=== PATIENT | male | born 1940 | race Caucasian/White ===

== ENCOUNTER 2020-01-17 19:11 | Emergency (ER) | payer OTHER, MEDICARE ==
[~2020-01-17] VITALS: Ht 170.2 cm; Wt 68.0 kg
[~2020-01-17 19:11] MED LIST: ALBIPROI INH; AZEL.05OP OD; CARV3.125 PO; CLOT1TC TOP; CYAN1000 PO; GABA300 PO; HYDACE5 PO; HYPROMELLOSE OT; INDO25 PO; KETO120T TP; LEVFLO500 PO; MIRT15 PO; NITR.6SL SL; PRAV20 PO; PROCODE120 PO; RALT400 PO; [UNRECOGNIZED DRUG - REMARK]
[2020-01-17] MEDS ORDERED: ATOR20 PO (19:40)
[2020-01-17] MEDS ORDERED: GENTEAL TEARS 015 ML BOTHEYES (19:41)
[2020-01-17] MEDS ORDERED: OMEP20ER PO (19:42)
[2020-01-17] MEDS ORDERED: ASPI81CH PO (19:43)
[2020-01-17] MEDS ORDERED: TRIUMEQ TABLET1 EACH PO (19:45)
[2020-01-17 20:10] LABS: BASOPHILS ABSOLUTE AUTO 0.07 K/mm3 (0.00-0.23); BASOPHILS PERCENT AUTO 1 % (0-2); EOSINOPHILS PERCENT AUTO 3 % (0-6); Hematocrit 40.3 % (37.0-53.0); IMMATURE GRAN ABSOLUTE AUTO 0.01 K/mm3 (0.00-0.10); IMMATURE GRAN PERCENT AUTO 0 % (0-1); LYMPHOCYTES ABSOLUTE AUTO 2.82 K/mm3 (0.84-5.20); LYMPHOCYTES PERCENT AUTO 41 % (21-46); MONOCYTES ABSOLUTE AUTO 0.52 K/mm3 (0.16-1.47); MONOCYTES PERCENT AUTO 8 % (4-13); Mean Corpuscular HGB 33.4 pg (26.0-34.0); Mean Corpuscular HGB Conc 34.7 g/dL (31.5-36.5); Mean Corpuscular Volume 96 fL (80-100); Mean Platelet Volume 9.7 fL (9.1-12.4); NEUTROPHILS ABSOLUTE AUTO 3.32 K/mm3 (1.96-9.15); NEUTROPHILS PERCENT AUTO 48 % (41-73); Platelet Count 236 K/mm3 (150-400); RDW Coefficient Variation 13.1 % (11.7-14.2); RDW Standard Deviation 46.4 fL (35.1-46.3); Red Blood Cell Count 4.19 M/mm3 (4.30-5.90); White Blood Cell Count 6.94 K/mm3 (4.00-11.30)
[2020-01-17 20:16] LABS: Albumin, Blood 3.7 g/dL (3.4-5.0); Albumin/Globulin Ratio 0.9 (0.8-1.8); Bilirubin, Total 0.4 mg/dL (0.1-1.0); Bun/Creatinine Ratio 10.1 (12.0-20.0); Calcium, Blood 8.8 mg/dL (8.5-10.1); Creatinine, Blood 1.59 mg/dL (0.60-1.20); Globulin, Blood 3.9 g/dL (2.2-4.0); Total Protein, Blood 7.6 g/dL (6.4-8.2)
[2020-01-17 20:58] LABS: Source, Urine Clean Catch
[2020-01-17 21:00] LABS: Appearance, Urine Clear (Clear); Bilirubin, Urine Neg (Neg); Blood, Urine 1+ (Neg); Color, Urine Yellow (P-Yellow); Glucose Qualitative, Urine Neg (Neg); Ketones, Urine Neg (Neg); Leukocyte Esterase, Urine Neg (Neg); Nitrite, Urine Neg (Neg); Protein, Urine 2+ (Neg); Specific Gravity, Urine 1.025 (1.003-1.022); Urobilinogen, Urine NORM (Normal)
[2020-01-17 21:06] LABS: Bacteria Few /hpf; Calcium Oxalate Crystals Mod /hpf; Red Blood Cells, Urine 0-2 /hpf (0-2); Squamous Epithelial Cells Few /hpf (Few); White Blood Cells, Urine 0-2 /hpf (0-5)
[2020-01-17] MEDS ORDERED: HYDR25SUP PR (21:34)
== END 2020-01-17 21:40 | disposition home or self-care (01) ==
LOC: ER 19:11
PROVIDERS: Emergency Medicine
DX: K64.9 Unspecified hemorrhoids (principal); R19.7 Diarrhea, unspecified; I13.0 Hypertensive heart and chronic kidney disease with heart failure and stage 1 through stage 4 chronic kidney disease, or unspecified chronic kidney disease; N18.9 Chronic kidney disease, unspecified; I50.9 Heart failure, unspecified; J44.9 Chronic obstructive pulmonary disease, unspecified; F20.9 Schizophrenia, unspecified; B20 Human immunodeficiency virus [HIV] disease; G47.30 Sleep apnea, unspecified
CPT/HCPCS: 74176; 80053; 81001; 83690; 85025; 93005; 93010; 99285-25

== ENCOUNTER 2021-02-11 05:46 | Day surgery (SDC) | payer OTHER ==
[~2021-02-11] VITALS: Ht 170.2 cm; Wt 79.0 kg
[~2021-02-11 05:46] MED LIST changes: -ALBIPROI INH; +ASPI81CH PO; +ATOR20 PO; +COMBIVENT RESPIM4 G1 INH; +GENTEAL TEARS 015 ML BOTHEYES; +HYDR25SUP PR; -KETO120T TP; +KETO15TC TOP; +OMEP20ER PO; +TRIUMEQ TABLET1 EACH PO
[2021-02-11] MEDS ORDERED: VITAMIN D31000 UNI1 PO (06:34)
[2021-02-11] MEDS ORDERED: ZYRTEC10 M1 PO (06:37)
[2021-02-11] MEDS ORDERED: ABACAVIR-LAMIV1 EAC3 PO (06:38)
[2021-02-11] MEDS ORDERED: Isosorbide Mono30 MG PO (06:42)
--- NOTE | 2021-02-11 09:14 | NUR ---
ZOFRAN 4 MG IV GIVVEN FOR NAUSEA AND VOMITING. SMALL HEMATOMA RIGHT GROIN. MANUAL PRESSUREHELD BY Ronnell VALLEJO RN X 10 MINUTES. SIGHT NOW SOFT.
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
--- NOTE | 2021-02-11 12:36 | NUR ---
PT GETTING DRESSED PER SELF, BOTH WRIST AND GROIN SITES STABLE
--- NOTE | 2021-02-11 12:49 | NUR ---
TR BAND REMOVED FROM R RADIAL SITE, NO BLEEDING NOTED. AREA CLEANED AND CLOTH DOT APPLIED. SALINE LOCK REMOVED WITH CATHETER INTACT. BOTH GROIN AND RADIAL SITE STABLE. DISCHARGE GONE OVER WITH PT, PT VERBALIZES UNDERSTANDING. PT TO PRIVATE VEHICLE PER W/C
== END 2021-02-11 13:00 | disposition home or self-care (01) ==
LOC: MHTC 05:46
DX: I25.118 Atherosclerotic heart disease of native coronary artery with other forms of angina pectoris (principal); G47.33 Obstructive sleep apnea (adult) (pediatric); I13.0 Hypertensive heart and chronic kidney disease with heart failure and stage 1 through stage 4 chronic kidney disease, or unspecified chronic kidney disease; I50.9 Heart failure, unspecified; N18.9 Chronic kidney disease, unspecified; E78.5 Hyperlipidemia, unspecified; Z79.82 Long term (current) use of aspirin; Z87.891 Personal history of nicotine dependence; Z88.0 Allergy status to penicillin
CPT/HCPCS: 85347; 93458; 93571; 93572; 99152; 99153; C1760; C1769; C1887; C1894; J1644; J2250; J2405; J3010; J7030; J7050; Q9967

== ENCOUNTER 2023-09-20 18:51 | Emergency (ER) | payer OTHER ==
[~2023-09-20] VITALS: Ht 167.6 cm; Wt 77.1 kg
[~2023-09-20 18:51] MED LIST changes: +ABACAVIR-LAMIV1 EAC3 PO; +Isosorbide Mono30 MG PO; +VITAMIN D31000 UNI1 PO; +ZYRTEC10 M1 PO
[2023-09-20 19:47] LABS: BASOPHILS ABSOLUTE AUTO 0.08 K/mm3 (0.00-0.23); BASOPHILS PERCENT AUTO 1 % (0-2); EOSINOPHILS ABSOLUTE AUTO 0.35 K/mm3 (0.00-0.68); EOSINOPHILS PERCENT AUTO 5 % (0-6); Hematocrit 39.7 % (37.0-53.0); Hemoglobin 13.9 g/dL (13.5-17.5); IMMATURE GRAN ABSOLUTE AUTO 0.02 K/mm3 (0.00-0.10); IMMATURE GRAN PERCENT AUTO 0 % (0-1); LYMPHOCYTES ABSOLUTE AUTO 2.57 K/mm3 (0.84-5.20); LYMPHOCYTES PERCENT AUTO 35 % (21-46); MONOCYTES ABSOLUTE AUTO 0.46 K/mm3 (0.16-1.47); MONOCYTES PERCENT AUTO 6 % (4-13); Mean Corpuscular Volume 97 fL (80-100); Mean Platelet Volume 9.6 fL (9.1-12.4); NEUTROPHILS ABSOLUTE AUTO 3.87 K/mm3 (1.96-9.15); NEUTROPHILS PERCENT AUTO 53 % (41-73); Platelet Count 214 K/mm3 (150-400); RDW Coefficient Variation 13.4 % (11.7-14.2); RDW Standard Deviation 47.8 fL (35.1-46.3); Red Blood Cell Count 4.09 M/mm3 (4.30-5.90); White Blood Cell Count 7.35 K/mm3 (4.00-11.30)
[2023-09-20 20:14] LABS: Albumin, Blood 3.5 g/dL (3.4-5.0); Albumin/Globulin Ratio 0.9 (0.8-1.8); Bilirubin, Total 0.4 mg/dL (0.1-1.0); Bun/Creatinine Ratio 11.2 (12.0-20.0); Calcium, Blood 9.4 mg/dL (8.5-10.1); Creatinine, Blood 1.34 mg/dL (0.60-1.20); Total Protein, Blood 7.5 g/dL (6.4-8.2)
[2023-09-20 20:39] LABS: Source, Urine Voided
[2023-09-20 20:58] LABS: Bilirubin, Urine Neg (Neg); Blood, Urine 4+ (Neg); Glucose Qualitative, Urine Neg (Neg); Ketones, Urine Neg (Neg); Leukocyte Esterase, Urine 2+ (Neg); Nitrite, Urine Neg (Neg); Protein, Urine 2+ (Neg); Specific Gravity, Urine 1.025 (1.003-1.022); Urobilinogen, Urine NORM (Normal)
[2023-09-20 21:00] LABS: Appearance, Urine Hazy (Clear); Color, Urine Yellow (P-Yellow)
[2023-09-20 21:08] LABS: Amorphous Light (0-Heavy); Bacteria Mod /hpf; Mucus Light (0-Heavy); Red Blood Cells, Urine 0-2 /hpf (0-2); Squamous Epithelial Cells Few /hpf (Few); White Blood Cells, Urine TNTC /hpf (0-5)
[2023-09-21 01:00] VITALS: BP 162/86
[2023-09-21] MEDS ORDERED: HYDR1TAB94 PO (01:06)
== END 2023-09-21 01:20 | disposition home or self-care (01) ==
LOC: ER 18:51
PROVIDERS: Emergency Medicine
DX: R10.32 Left lower quadrant pain (principal); R82.81 Pyuria; Z21 Asymptomatic human immunodeficiency virus [HIV] infection status; I13.0 Hypertensive heart and chronic kidney disease with heart failure and stage 1 through stage 4 chronic kidney disease, or unspecified chronic kidney disease; I50.9 Heart failure, unspecified; N18.9 Chronic kidney disease, unspecified; J44.9 Chronic obstructive pulmonary disease, unspecified; G47.33 Obstructive sleep apnea (adult) (pediatric); F20.9 Schizophrenia, unspecified; Z79.82 Long term (current) use of aspirin; Z79.899 Other long term (current) drug therapy; Z88.0 Allergy status to penicillin; Z88.2 Allergy status to sulfonamides; Z88.8 Allergy status to other drugs, medicaments and biological substances; Z91.041 Radiographic dye allergy status
CPT/HCPCS: 74176; 80053; 81001; 85025; 96360; 99284-25; A9270; J7030

== ENCOUNTER 2023-12-12 16:58 | Emergency (ER) | payer OTHER ==
[~2023-12-12] VITALS: Ht 170.2 cm; Wt 77.1 kg
[~2023-12-12 16:58] MED LIST changes: +HYDR1TAB94 PO
[2023-12-12 17:45] LABS: BASOPHILS ABSOLUTE AUTO 0.07 K/mm3 (0.00-0.23); BASOPHILS PERCENT AUTO 1 % (0-2); EOSINOPHILS ABSOLUTE AUTO 0.12 K/mm3 (0.00-0.68); EOSINOPHILS PERCENT AUTO 2 % (0-6); Hematocrit 40.9 % (37.0-53.0); Hemoglobin 14.7 g/dL (13.5-17.5); IMMATURE GRAN ABSOLUTE AUTO 0.02 K/mm3 (0.00-0.10); IMMATURE GRAN PERCENT AUTO 0 % (0-1); LYMPHOCYTES ABSOLUTE AUTO 2.55 K/mm3 (0.84-5.20); LYMPHOCYTES PERCENT AUTO 40 % (21-46); MONOCYTES ABSOLUTE AUTO 0.39 K/mm3 (0.16-1.47); MONOCYTES PERCENT AUTO 6 % (4-13); Mean Corpuscular HGB 34.3 pg (26.0-34.0); Mean Corpuscular HGB Conc 35.9 g/dL (31.5-36.5); Mean Corpuscular Volume 96 fL (80-100); Mean Platelet Volume 9.4 fL (9.1-12.4); NEUTROPHILS ABSOLUTE AUTO 3.29 K/mm3 (1.96-9.15); NEUTROPHILS PERCENT AUTO 51 % (41-73); Platelet Count 217 K/mm3 (150-400); RDW Standard Deviation 45.1 fL (35.1-46.3); Red Blood Cell Count 4.28 M/mm3 (4.30-5.90); White Blood Cell Count 6.44 K/mm3 (4.00-11.30)
[2023-12-12 18:09] LABS: Albumin, Blood 3.9 g/dL (3.4-5.0); Albumin/Globulin Ratio 0.9 (0.8-1.8); Bilirubin, Total 0.8 mg/dL (0.1-1.0); Bun/Creatinine Ratio 10.2 (12.0-20.0); Creatinine, Blood 1.37 mg/dL (0.60-1.20); Globulin, Blood 4.3 g/dL (2.2-4.0); Potassium, Blood 3.4 mmol/L (3.5-5.5); Total Protein, Blood 8.2 g/dL (6.4-8.2)
[2023-12-12] MEDS ORDERED: Potassium Chloride 20 MEQ TabCR PO ONE (19:20)
[2023-12-12 20:45] VITALS: BP 184/94
== END 2023-12-12 20:52 | disposition home or self-care (01) ==
LOC: ER 16:58
PROVIDERS: Student in an Organized Health Care Education/Training Program
DX: R55 Syncope and collapse (principal); R42 Dizziness and giddiness; E87.6 Hypokalemia; I13.0 Hypertensive heart and chronic kidney disease with heart failure and stage 1 through stage 4 chronic kidney disease, or unspecified chronic kidney disease; I50.9 Heart failure, unspecified; N18.9 Chronic kidney disease, unspecified; I25.10 Atherosclerotic heart disease of native coronary artery without angina pectoris; J44.9 Chronic obstructive pulmonary disease, unspecified; F20.9 Schizophrenia, unspecified; G47.33 Obstructive sleep apnea (adult) (pediatric); Z21 Asymptomatic human immunodeficiency virus [HIV] infection status; Z91.041 Radiographic dye allergy status; Z88.0 Allergy status to penicillin; Z88.8 Allergy status to other drugs, medicaments and biological substances; Z88.2 Allergy status to sulfonamides; Z88.1 Allergy status to other antibiotic agents; Z79.899 Other long term (current) drug therapy; Z79.82 Long term (current) use of aspirin
CPT/HCPCS: 70450; 71046; 80053; 82947; 83735; 83880; 84484; 85025; 93005; 93010; 99285-25; A9270

== ENCOUNTER 2024-02-23 17:43 | Inpatient (IN) | payer OTHER ==
[~2024-02-23] VITALS: Ht 170.2 cm; Wt 79.4 kg
[~2024-02-23 17:43] MED LIST changes: +Voltaren100 GM TOP
[2024-02-23] MEDS ORDERED: FentaNYL Citrate 50 MCG/ML 2 ML Injection ONE (17:54)
[2024-02-23] MEDS ORDERED: Diphth,Pertuss(Acell),Tet Vac 0.5 ML VIAL IM ONE (18:05)
[2024-02-23] MEDS ORDERED: FentaNYL Citrate 50 MCG/ML 2 ML Injection IV PRN ×2 (18:05→21:05)
[2024-02-23 18:15] LABS: BASOPHILS ABSOLUTE AUTO 0.07 K/mm3 (0.00-0.23); BASOPHILS PERCENT AUTO 1 % (0-2); EOSINOPHILS ABSOLUTE AUTO 0.16 K/mm3 (0.00-0.68); EOSINOPHILS PERCENT AUTO 2 % (0-6); Hematocrit 38.5 % (37.0-53.0); Hemoglobin 13.9 g/dL (13.5-17.5); IMMATURE GRAN ABSOLUTE AUTO 0.04 K/mm3 (0.00-0.10); IMMATURE GRAN PERCENT AUTO 1 % (0-1); LYMPHOCYTES PERCENT AUTO 26 % (21-46); MONOCYTES ABSOLUTE AUTO 0.41 K/mm3 (0.16-1.47); MONOCYTES PERCENT AUTO 6 % (4-13); Mean Corpuscular HGB 35.5 pg (26.0-34.0); Mean Corpuscular HGB Conc 36.1 g/dL (31.5-36.5); Mean Corpuscular Volume 98 fL (80-100); Mean Platelet Volume 9.5 fL (9.1-12.4); NEUTROPHILS ABSOLUTE AUTO 4.82 K/mm3 (1.96-9.15); NEUTROPHILS PERCENT AUTO 65 % (41-73); Platelet Count 219 K/mm3 (150-400); RDW Coefficient Variation 13.4 % (11.7-14.2); RDW Standard Deviation 47.8 fL (35.1-46.3); Red Blood Cell Count 3.92 M/mm3 (4.30-5.90)
[2024-02-23] MEDS ORDERED: CeFAZolin Sodium 2,000 MG in NS 100 ML IV ONE ×2 (18:15→20:35)
[2024-02-23 18:26] LABS: International Normalized Ratio 1.02; Prothrombin Time Results 10.9 Sec (9.7-11.5)
[2024-02-23 18:45] LABS: Ethanol (Alcohol), Blood, Med <3 mg/dL
[2024-02-23 18:47] LABS: Alanine Aminotransfer (ALT/SGP 27 U/L (12-78); Albumin, Blood 3.9 g/dL (3.4-5.0); Alk Phos 93 U/L (50-136); Anion Gap 9 mmol/L (3-11); Aspartate Aminotrans (AST/SGOT 35 U/L (12-37); Bilirubin, Total 0.6 mg/dL (0.1-1.0); Blood Urea Nitrogen 16 mg/dL (8-24); Bun/Creatinine Ratio 10.6 (12.0-20.0); CO2, Blood 27 mmol/L (21-32); Calcium, Blood 9.2 mg/dL (8.5-10.1); Chloride, Blood 111 mmol/L (98-108); Creatinine, Blood 1.51 mg/dL (0.60-1.20); Glomerular Filtration Rate 46 (60-); Glucose, Blood 167 mg/dL (70-99); Potassium, Blood 4.5 mmol/L (3.5-5.5); Sodium, Blood 142 mmol/L (136-145); Total Protein, Blood 7.9 g/dL (6.4-8.2)
[2024-02-23] MEDS ORDERED: HYDROmorphone HCl/Pf 1MG SYR IV ONE ×2 (19:05→19:35)
[2024-02-23] MEDS ORDERED: FentaNYL Citrate 50 MCG/ML 2 ML Injection IV ONE (20:35)
[2024-02-23] MEDS ORDERED: Acetaminophen 325 MG TABLET PO PRN (21:10)
[2024-02-23] MEDS ORDERED: LORazepam 2 MG/ML 1ML Injection IV PRN (21:10)
[2024-02-23] MEDS ORDERED: Albuterol 2.5 MG/3 ML VIAL INH PRN (21:15)
[2024-02-23] MEDS ORDERED: Ondansetron HCl 2 MG / ML 2ML Vial IV PRN (22:00)
[2024-02-23] MEDS ORDERED: OxyCODONE HCL 5 MG TAB PO PRN (22:05)
[2024-02-23 22:15] VITALS: BP 148/95
[2024-02-23] MEDS ORDERED: NS 250 ML IV PRN (22:55)
[2024-02-24] VITALS (15 sets, daily range): BP systolic 100–162; BP diastolic 67–95
[2024-02-24] MEDS ORDERED: CeFAZolin Sodium 2,000 MG in NS 100 ML IV SCH
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
[2024-02-24 05:40] LABS: Hematocrit 35.4 % (37.0-53.0); Hemoglobin 12.5 g/dL (13.5-17.5); Mean Corpuscular HGB 34.5 pg (26.0-34.0); Mean Corpuscular HGB Conc 35.3 g/dL (31.5-36.5); Mean Corpuscular Volume 98 fL (80-100); Mean Platelet Volume 9.5 fL (9.1-12.4); Platelet Count 209 K/mm3 (150-400); RDW Coefficient Variation 13.3 % (11.7-14.2); Red Blood Cell Count 3.62 M/mm3 (4.30-5.90); White Blood Cell Count 9.39 K/mm3 (4.00-11.30)
[2024-02-24 05:52] LABS: International Normalized Ratio 1.05; Prothrombin Time Results 11.2 Sec (9.7-11.5)
[2024-02-24] MEDS ORDERED: Omeprazole 20 MG CapCR PO SCH (06:00)
[2024-02-24 06:10] LABS: Albumin, Blood 3.7 g/dL (3.4-5.0); Albumin/Globulin Ratio 1.1 (0.8-1.8); Bilirubin, Total 0.6 mg/dL (0.1-1.0); Bun/Creatinine Ratio 12.1 (12.0-20.0); Calcium, Blood 8.7 mg/dL (8.5-10.1); Creatinine, Blood 1.49 mg/dL (0.60-1.20); Globulin, Blood 3.5 g/dL (2.2-4.0); Potassium, Blood 4.2 mmol/L (3.5-5.5); Total Protein, Blood 7.2 g/dL (6.4-8.2)
[2024-02-24] MEDS ORDERED: Carvedilol 6.25 MG Tab PO SCH (08:00)
[2024-02-24] MEDS ORDERED: Lactated Ringer's 1,000 ML IV SCH ×2 (08:30→14:05)
[2024-02-24] MEDS ORDERED: Docusate Sodium 100 MG Cap PO SCH (09:00)
[2024-02-24] MEDS ORDERED: Atorvastatin 10 MG Tab PO SCH (09:00)
[2024-02-24] MEDS ORDERED: Gabapentin 300 MG Cap PO SCH (09:00)
[2024-02-24] MEDS ORDERED: Isosorbide Mononitrate 60 MG TABCR PO SCH (09:00)
--- NOTE | 2024-02-24 11:54 | NUR ---
"Spiritual Care | Nurse Request Pt. is awake and welcomes my visit. Family members are at bedside. Facilitated a life review. Pt. speaks about his years in the [employer], and how he came to [place] through his parents. Considered matters of [place] and belief. Pt. displayed evidence of hope, but also a desire to get better. Pt. is unsettled by his disabilites. Listen with empathy, honor, and a calming presence. Prayed with the Pt. Pt. verbalized gratitude for the spiritual care visit."
[2024-02-24] MEDS ORDERED: B-121000 MC3 PO (12:51)
[2024-02-24] MEDS ORDERED: LIDO700A20 TOP (12:52)
[2024-02-24] MEDS ORDERED: Flonase 0.05% N16 GM (12:52)
[2024-02-24] MEDS ORDERED: METO50ER PO (12:53)
[2024-02-24] MEDS ORDERED: Hair, Skin & N1 EACH PO (12:54)
[2024-02-24] MEDS ORDERED: ARTIFICIAL TEA1 EAC1 BOTHEYES (12:56)
[2024-02-24] MEDS ORDERED: OMEP20ER PO (12:56)
[2024-02-24] MEDS ORDERED: TAMS.4ER PO (12:57)
[2024-02-24] MEDS ORDERED: TRIUMEQ 600-501 EACH PO (13:43)
[2024-02-24] MEDS ORDERED: DULO30 PO (13:44)
[2024-02-24] MEDS ORDERED: Bupivacaine 0.5% HCl 5 MG/ML 30MLVIAL ONE (13:45)
[2024-02-24] MEDS ORDERED: DOLUTEGRAVIR PO (13:48)
[2024-02-24] MEDS ORDERED: LAMIVUDINE PO (13:48)
[2024-02-24] MEDS ORDERED: SIME80CH PO (13:49)
[2024-02-24] MEDS ORDERED: PIFELTRO100 MG PO (13:49)
--- NOTE | 2024-02-24 13:50 | NUR ---
PATIENT BEING TAKEN BACK TO THE OR IN HIS BED.
--- NOTE | 2024-02-24 13:51 | NUR ---
MED REC COMPLETED BASED ON BOTTLES SON BROUGHT IN AND STATED THIS IS ALL HIS DAD TAKES NOT BASED OFF [facility] FROM [facility].
[2024-02-24] MEDS ORDERED: CeFAZolin Sodium 1,000 MG in NS 50 ML IV SCH (14:05)
[2024-02-24] MEDS ORDERED: Lidocaine 4% 1 Patch TOP PRN (14:25)
[2024-02-24] MEDS ORDERED: Midazolam HCl 1MG / ML 2ML Vial ONE (14:37)
[2024-02-24] MEDS ORDERED: propofoL 20 ML IV ONE (14:37)
[2024-02-24] MEDS ORDERED: FentaNYL Citrate 50 MCG/ML 2 ML Injection ONE (14:37)
[2024-02-24] MEDS ORDERED: Ketorolac Tromethamine 30mg Vial ONE (14:58)
[2024-02-24] MEDS ORDERED: Ondansetron HCl 2 MG / ML 2ML Vial ONE (14:58)
--- NOTE | 2024-02-24 17:46 | NUR ---
SHIFT SUMMARY S/P L HAND/WRIST PERC PIN/YE/SLING, PAIN MANAGED, IVA PO, AWAITING POST OP VOID, WILL REPORT TO ONCOMING NOC RN.
--- NOTE | 2024-02-24 23:27 | NUR ---
CALLED TO SURGICAL TO ASSIST THIS GENTLEMAN WITH STRAIGHT CATH. PT STATES THAT HE STRAIGHT CATHS AT HOME. PT ALSO STATES THAT HE IS ALLERGIC TO IODINE. CLOTH CATHETER WIPES USED TO CLEAN MEATUS. PT HAS 600 ML YELLOW URINE OUTPUT. UPDATED PRIMARY RN. PT TOLERATES WELL.
[2024-02-25 04:45] VITALS: BP 135/71
[2024-02-25 07:35] VITALS: BP 140/73
--- NOTE | 2024-02-25 07:37 | NUR ---
SUMMARY PT C/O ITCHING INTERMITTENTLY TONIGHT,MOSTLY BACK WHICH IS PINK,PT REPORTS SENSITIVITIES TO LININ SOAPS. PT CONT WITH L FINGERS WARM AND MOBILE WITH CAP REFILL WNL.PT C/O PAIN L SHOULDER.I PLACED ICE, BUT PT REFUSED PAIN MEDS REPORTING HE DOESNT LIKE TO TAKE THEM ALTHOUGH HE HAD TAKEN PO PAIN MEDS INITIALLY POSTOP. I WAS ABLE TO OBTAIN PTS AGRREMENT TO TAKE LATA THIS AM. PT ALSO NOTED TO COUGH AFTER PO LIQS AFTER DINNER AND LATER COUGHED WITH THICKENED LIQUIDS.PT REPORTS THIS IS NOT NEW TO HIM.PT ALSO REPORTED HE INTERMITTENTLY SELF CATHS AT HOME AND REQUIRED STRAIGHT CATH X 1 TONIGHT FOR 600 ML RETURN. PT CATH WAS PER ICU MALE RN PER PT REQUEST OF MALE RN FOR THIS PROCEDURE.
--- NOTE | 2024-02-25 07:45 | NUR ---
DAY RN AGREES TO FOLLOW UP REGARDING COUGHING WITH LIQS,HIV MED CLARIFICATION,PAIN CONTROL, NEED FOR STRAIGHT CATH AND QUESTION OF HELP WITH THIS AT HOME.
[2024-02-25] MEDS ORDERED: DULoxetine HCL 30 MG Cap DR PO SCH (09:00)
[2024-02-25] MEDS ORDERED: Multivitamins/Minerals TAB PO SCH (09:00)
[2024-02-25] MEDS ORDERED: Ketoconazole 2% Cream 15 GM TOP SCH (09:00)
[2024-02-25] MEDS ORDERED: Fluticasone 0.05% Nasal Spray SCH (09:00)
[2024-02-25] MEDS ORDERED: DOLUTEGRAVIR PO SCH (09:00)
[2024-02-25] MEDS ORDERED: Cholecalciferol 1000 Unit Tablet (=25MCG) PO SCH (09:00)
[2024-02-25] MEDS ORDERED: LAMIVUDINE PO SCH (09:00)
[2024-02-25] MEDS ORDERED: Tamsulosin HCl 0.4 MG Cap PO SCH (09:00)
[2024-02-25] MEDS ORDERED: ABACAVIR PO SCH (09:00)
[2024-02-25] MEDS ORDERED: Metoprolol Succinate 50 MG TABCR PO SCH (09:00)
[2024-02-25] MEDS ORDERED: Cyanocobalamin 500 MCG Tab PO SCH (09:00)
[2024-02-25 14:51] VITALS: BP 109/76
--- NOTE | 2024-02-25 18:45 | NUR ---
SHIFT SUMMARY POD1 L PERC PIN HAND/WRIST YE/SLING CDI, WIGGLES FINGERS. 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 WILL REPORT TO ONCOMING DIANA MURPHY.
[2024-02-25 20:00] VITALS: BP 121/77
--- NOTE | 2024-02-25 23:15 | NUR ---
PT FEBRILE,WHEEZING WITH TEMP RISING AFTER TYLENOL AND PT UNABLE TO TAKE IBUPROFEN DUE TO KIDNEY ISSUES.PT HAS HX COUGHING AFTER FOODS AND FLUIDS WITH HX OF SAME AT HOME.PT ALSO REQUIRING STRAIGHT CATHS INTERMITTENTLY SELF CATHS AT HOME.I NOTIFIED JAMIE AND ORDERS RECEIVED.
[2024-02-26 00:07] LABS: Source, Urine Foley catheter
[2024-02-26 00:18] LABS: Appearance, Urine Clear (Clear); Bilirubin, Urine Neg (Neg); Blood, Urine 4+ (Neg); Color, Urine Yellow (P-Yellow); Glucose Qualitative, Urine Neg (Neg); Ketones, Urine Neg (Neg); Leukocyte Esterase, Urine 1+ (Neg); Nitrite, Urine Neg (Neg); Protein, Urine 2+ (Neg); Specific Gravity, Urine 1.015 (1.003-1.022); Urobilinogen, Urine NORM (Normal)
[2024-02-26 00:39] LABS: Squamous Epithelial Cells Few /hpf (Few)
[2024-02-26 00:40] LABS: Bacteria Few /hpf; Mucus Light (0-Heavy)
--- NOTE | 2024-02-26 02:48 | NUR ---
PT WITH STRONGLY AUDIBLE EXP WHEEZES WHILE SLEEPING,REPOSITIONED HEAD AND NECK TO HELP WITH HX JACOB-REFUSES AT HOME TO WEAR CPAP.PT REPORTS HX "ASTHMA", BUT WITHIN MINUTES DENIES.I CALLED RT FOR NEB AND NOTIFIED DR MURILLO OF PRIOR ORDERS AND RADS.PER DR CRUM OF RADS AND CURRENT SITUATION, DR MURILLO WANTS PT TO TRY CPAP IF WE AR ABLE TO GET AGREEMENT PER PT.
[2024-02-26 03:20] VITALS: BP 123/68
--- NOTE | 2024-02-26 03:27 | NUR ---
PT AGREED TO TRY CPAP AND RT PLACED MASK WHICH IS TO RIDE UP AGAINST NOSTRILS AND PT PULLED IT DOWN THEN DESATED TO 82% I REPOSITIONED MASK AND PT RETURNED TO SAT OF 94-96% I CALLED RT AND THEY PLACED DIFFERENT STYLE OF MASK.PT ALSO RIPPED MIRANDA STAT LOCK APART.I REPLACED STAT LOCK,AND TALKED WITH PT REGARDING RISK OF PULLING MIRANDA OUT OR OTHER TUBES AND RISK OF REMOVING CPAP MASK.
--- NOTE | 2024-02-26 07:55 | NUR ---
DAY RN ASSUMED CARE PT SLEEPING WITH CPAP ON.SATS 96%
[2024-02-26] MEDS ORDERED: Misc. Tablet PO SCH ×2 (09:00)
[2024-02-26 09:58] VITALS: BP 113/79
[2024-02-26 10:23] LABS: % CD4 28 % (35-68); ABSOLUTE CD4 505 cells/uL (490-1600)
--- NOTE | 2024-02-26 10:40 | NUR ---
PT TAKEN TO RADIOLOGY FOR SWALLOW EVAL.
--- NOTE | 2024-02-26 13:55 | NUR ---
AM MEDS GIVEN AFTER SWALLOW EVAL DONE.
[2024-02-26 15:11] VITALS: BP 138/70
--- NOTE | 2024-02-26 15:43 | NUR ---
WORKING WITH PHYSICAL THERAPY.
--- NOTE | 2024-02-26 18:19 | NUR ---
SUMMARY POD 2 PERC. PINNING LH AND WRIST, L ARM IN SLING, YE WRAP INTACT, OOB W/ PT/OT TODAY, USES KEERTHI WALKER, 2 PERSON STANDBY ASSIST, USES CPAP WHEN SLEEPING, MIRANDA IN PLACE, UP TO CHAIR MOST AFTERNOON, PT NOW BACK IN BED, USES CALL LIGHT APPROPRIATELY, NO ACUTE CHANGES THIS SHIFT.
[2024-02-26 19:18] LABS: HIV-1 QNT BY NAAT INTERP Detected (Not Detected); HIV-1 QNT NAAT (LOG COPIES/ML) <1.47
[2024-02-26 19:26] VITALS: BP 108/60
[2024-02-27 03:22] VITALS: BP 114/64
[2024-02-27 07:58] VITALS: BP 126/71
--- NOTE | 2024-02-27 08:13 | NUR ---
SUMMARY NO ACUTE CHANGES NOTED THROUGH THE NIGHT, A&O X3-4, DRSG C/D/I. ENC TO ELEVATE L ARM, CIRC WNL, IVA PO INTAKE, VOIDING WNL REPORT TO LIBRADO MURPHY,
[2024-02-27 16:30] VITALS: BP 125/78
--- NOTE | 2024-02-27 18:22 | NUR ---
SHIFT SUMMARY PT IS SITTING UP IN BED WIDE AWAKE WATCHING TV. HE IS A&OX4. VSS. MIRANDA IN PLACE HARD OF HEARING EVEN WITH HIS HEARING AIDS IN PLACE. HIS MOOD HAS BEEN CALM AND PLEASANT THROUGOUT THIS SHIFT. HE IS CURRENTLY ON 3L/NC BUT USES A CPAP WELL. HE STATES THE CPAP "MAKES HIM FEEL SMOTHERED" AND PREFERS THE NC. HE WAS ON ROOM AIR THIS MORNING AND BEGAN SATTING IN THE MID-80'S BUT REFUSED CPAP AND THE NC WAS PLACED. O2 SATS IMPROVED INTO THE 90'S RIGHT AWAY. PT IS TOLERTING A REGULAR DIET.
[2024-02-27 20:18] VITALS: BP 131/66
[2024-02-28 02:49] VITALS: BP 121/71
--- NOTE | 2024-02-28 04:24 | NUR ---
SHIFT SUMMARY POD4 L WRIST PINNING. SENSATION AND CIRCULATION REMAIN INTACT. L HUMERAL FX W/ SPLINT. EXTREMITY REMAINS NWB T/O THE NIGHT. VSS. PT SLEPT ON AND OFF T/O THE NIGHT. AMBULATED TO THE BATHROOM ONCE FOR A BM, INC/CONT. PT EXTREMELY UNSTEADY AND DISTRACTED WHILE AMBULATING, 2P MOD/MAX ASSIST. MIRANDA REMAINS IN PLACE, CLEAR YELLOW URINE DRAINING. PT TOLLERATING PO INTAKE W/O N/V. MEDICATED FOR PAIN W/PRN'S WITH TOLLERABLE RESULTS. PLAN FOR PT TO D/C TO SNF THIS WEEK. NO ACUTE EVENTS NOTED T/O THE NIGHT.
[2024-02-28 05:23] LABS: Hematocrit 25.5 % (37.0-53.0); Hemoglobin 8.9 g/dL (13.5-17.5); Mean Corpuscular HGB Conc 34.9 g/dL (31.5-36.5); Mean Corpuscular Volume 100 fL (80-100); Mean Platelet Volume 9.5 fL (9.1-12.4); Platelet Count 176 K/mm3 (150-400); RDW Coefficient Variation 13.3 % (11.7-14.2); RDW Standard Deviation 48.4 fL (35.1-46.3); Red Blood Cell Count 2.54 M/mm3 (4.30-5.90); White Blood Cell Count 5.54 K/mm3 (4.00-11.30)
[2024-02-28 06:53] LABS: Albumin, Blood 2.7 g/dL (3.4-5.0); Anion Gap 7 mmol/L (3-11); Blood Urea Nitrogen 16 mg/dL (8-24); Bun/Creatinine Ratio 12.2 (12.0-20.0); CO2, Blood 30 mmol/L (21-32); Calcium, Blood 8.2 mg/dL (8.5-10.1); Chloride, Blood 107 mmol/L (98-108); Creatinine, Blood 1.31 mg/dL (0.60-1.20); Glomerular Filtration Rate 54 (60-); Glucose, Blood 105 mg/dL (70-99); Potassium, Blood 3.9 mmol/L (3.5-5.5); Sodium, Blood 140 mmol/L (136-145)
[2024-02-28 08:00] VITALS: BP 112/69
[2024-02-28 16:07] VITALS: BP 120/72
[2024-02-28 18:48] VITALS: BP 110/64
--- NOTE | 2024-02-28 20:29 | NUR ---
SHIFT SUMMARY POD4 L WRIST PINING, A/OX4, VSS, TOLERATING PO, PAIN WELL MANAGED, ABLE TO AMBULATE IN THE ROOM BUT HE IS UNSTEADY ON HIS FEET, USES KEERTHI WALKER AND GB WHILE AMBULATING, UP TO THE CHAIR MOST OF THE SHIFT TODAY. NO ACUTE EVENTS THIS SHIFT, CALL LIGHT IN REACH.
[2024-02-29 03:43] VITALS: BP 124/70
[2024-02-29 04:59] LABS: Hematocrit 26.2 % (37.0-53.0); Hemoglobin 9.2 g/dL (13.5-17.5); Mean Corpuscular HGB 34.7 pg (26.0-34.0); Mean Corpuscular HGB Conc 35.1 g/dL (31.5-36.5); Mean Corpuscular Volume 99 fL (80-100); Mean Platelet Volume 9.5 fL (9.1-12.4); Platelet Count 210 K/mm3 (150-400); RDW Coefficient Variation 13.1 % (11.7-14.2); RDW Standard Deviation 46.5 fL (35.1-46.3); RETICULOCYTE ABSOLUTE 0.0811 M/mm3 (0.0200-0.1100); RETICULOCYTE COUNT PERCENT 3.06 % (0.50-2.50); Red Blood Cell Count 2.65 M/mm3 (4.30-5.90); White Blood Cell Count 5.53 K/mm3 (4.00-11.30)
[2024-02-29 07:31] VITALS: BP 133/68
--- NOTE | 2024-02-29 07:58 | NUR ---
SHIFT SUMMARY ASSUMED CARE OF PT ROUGHLY 0100. NO ACUTE CHANGES. VSS. POD 5 L HAND PINNING. REPORTS MINIMAL PAIN 4-5/10, MEDICATED 1x W/TYLENOL & PT ABLE TO REST WELL. ABLE TO WIGGLE FINGERS ON L HAND, UNABLE TO ASSESS PULSE W/BRACE & WRAP IN PLACE. 2P W/GB & KEERTHI WALKER W/TRANSFERS. MIRANDA PATENT & DRAINING, PT HAD BM LAST NIGHT. CALL LIGHT IN REACH & PT ABLE TO MAKE NEEDS KNOWN.
[2024-02-29 13:08] LABS: FERRITIN 231 ng/mL (30-400)
--- NOTE | 2024-02-29 15:37 | NUR ---
PT RESTING IN BED, VISITING WITH FAMILY.
[2024-02-29 16:00] VITALS: BP 142/75
--- NOTE | 2024-02-29 16:49 | NUR ---
SUMMARY POD5 L WRIST I&D AND ORIF, L ARM IN SLING, OOB W/ KEERTHI WALKER AND 1-2 PERSON ASSIST, IVA FAIRLY WELL, WORKED WITH OT TODAY, OOB TO CHAIR, AMBULATED TO THE BATHROOM TO VOID, HAS HAD 2 FORMED BM'S TODAY, ICE TO L ARM PRN, NO ACUTE CHANGES THIS SHIFT.
[2024-02-29 19:23] VITALS: BP 136/72
[2024-03-01 00:09] LABS: IRON BIND.CAP.(TIBC) 158 ug/dL (250-450); IRON SATURATION 21 % (15-55); IRON, SERUM 33 ug/dL (38-169); UIBC 125 ug/dL (111-343)
[2024-03-01 04:07] VITALS: BP 132/73
--- NOTE | 2024-03-01 05:37 | NUR ---
SHIFT SUMMARY NO ACUTE CHANGES THIS SHIFT. POD 6 L HAND PINNING & I/D. REPORTS 5/10 PAIN, STATES PAIN TOLERABLE W/TYLENOL. ABLE TO WIGGLE FINGERS ON L HAND, THEY ARE BRUISED, LUE IS EDEMATOUS W/DIFFERENT COLOR BRUISING STAGES. LUE IN SLING. MIRANDA PATENT & DRAINING. CALL LIGHT IN REACH.
[2024-03-01 07:09] VITALS: BP 156/87
[2024-03-01 15:09] VITALS: BP 149/83
[2024-03-01 15:10] LABS: IRON BIND.CAP.(TIBC) 191 ug/dL (250-450); IRON SATURATION 21 % (15-55); IRON, SERUM 41 ug/dL (38-169); UIBC 150 ug/dL (111-343)
--- NOTE | 2024-03-01 16:34 | NUR ---
SUMMARY WORKED WITH PT, OT TODAY, OOB TO CHAIR W/ 1-2 PERSON ASSIST, IVA FAIRLY WELL W/ VERBAL CUEING, TYLENOL AND ICE FOR PAIN, L ARM IN SLING, YE WRAP RE-WRAPPED THIS AFTERNOON FOR C/O DISCOMFORT, CAP REFILL 3 SEC, NO ACUTE CHANGES THIS SHIFT.
[2024-03-01 19:30] VITALS: BP 137/71
[2024-03-02 03:10] VITALS: BP 154/88
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
[2024-03-02 07:25] VITALS: BP 163/95
[2024-03-02 12:02] LABS: SARS-Cov-2 (COVID-19) PCR, MMC NEGATIVE (NEGATIVE)
--- NOTE | 2024-03-02 14:02 | NUR ---
DISCHARGE PT DISCHARGED TO [facility] AT 1402. REPORT GIVEN. PT BELONGINS INCLUDING HOME MEDICATION SENT IN PT BELONGING BAGS. MIRANDA REMOVED, ORDER FOR INTERMITENT CATH WILL BE FAXED TO FACILITY.
[2024-03-06 01:06] LABS: FERRITIN 297 ng/mL (30-400)
== END 2024-03-02 14:02 | DRG 513 ==
LOC: ER 17:43 → SURS 17:44 → BHU 17:44 → SURS 21:27
PROVIDERS: Family Medicine; Internal Medicine; Nurse Practitioner Acute Care; Orthopaedic Surgery Sports Medicine; Student in an Organized Health Care Education/Training Program; ADMIT Surgery
PROC: 0PQ Upper Bones, Repair (ICD-10-PCS; 2024-02-24)
PROC: 0PSQ04Z Reposition Left Metacarpal with Internal Fixation Device, Open Approach (ICD-10-PCS; principal; 2024-02-24 14:00)
DX: S62.331B Displaced fracture of neck of second metacarpal bone, left hand, initial encounter for open fracture (principal); I13.0 Hypertensive heart and chronic kidney disease with heart failure and stage 1 through stage 4 chronic kidney disease, or unspecified chronic kidney disease; S42.292A Other displaced fracture of upper end of left humerus, initial encounter for closed fracture; N40.0 Benign prostatic hyperplasia without lower urinary tract symptoms; I25.10 Atherosclerotic heart disease of native coronary artery without angina pectoris; N18.30 Chronic kidney disease, stage 3 unspecified; J44.9 Chronic obstructive pulmonary disease, unspecified; R13.10 Dysphagia, unspecified; Z21 Asymptomatic human immunodeficiency virus [HIV] infection status; E78.5 Hyperlipidemia, unspecified; D63.1 Anemia in chronic kidney disease; I50.9 Heart failure, unspecified; G47.33 Obstructive sleep apnea (adult) (pediatric); F10.20 Alcohol dependence, uncomplicated; K21.9 Gastro-esophageal reflux disease without esophagitis; F20.9 Schizophrenia, unspecified; Z88.8 Allergy status to other drugs, medicaments and biological substances; Z88.2 Allergy status to sulfonamides; Z88.0 Allergy status to penicillin; Z91.041 Radiographic dye allergy status; Z79.899 Other long term (current) drug therapy; Z79.82 Long term (current) use of aspirin; Z87.19 Personal history of other diseases of the digestive system; I25.2 Old myocardial infarction; Z98.890 Other specified postprocedural states; Z90.49 Acquired absence of other specified parts of digestive tract; Z90.89 Acquired absence of other organs; V49.40XA Driver injured in collision with unspecified motor vehicles in traffic accident, initial encounter; Z99.89 Dependence on other enabling machines and devices; Z79.891 Long term (current) use of opiate analgesic
CPT/HCPCS: 12001; 26605; 36415; 70450; 71045; 71250; 72125; 73030; 73060; 73120; 73130; 73200; 74230; 80053; 80069; 81001; 82728; 83540; 83550; 83735; 85025; 85027; 85045; 85610; 86361; 87040; 87086; 87536; 90471; 90715; 92526; 92610; 92611; 94640; 94660; 94664; 94762; 96365-59; 96366; 96375-59; 96376; 96376-59; 97110; 97116; 97162; 97167; 97530; 97535; 99285-25; A9270; C1713; G0378; J0690; J1170; J1885; J2250; J2405; J2704; J3010; J7050; J7120; U0002

== ENCOUNTER 2024-03-08 14:42 | Emergency (ER) | payer OTHER ==
[~2024-03-08] VITALS: Ht 172.7 cm; Wt 90.7 kg
[~2024-03-08 14:42] MED LIST changes: +ARTIFICIAL TEA1 EAC1 BOTHEYES; +B-121000 MC3 PO; +DOLUTEGRAVIR PO; +DULO30 PO; +Flonase 0.05% N16 GM; +Hair, Skin & N1 EACH PO; +LAMIVUDINE PO; +LIDO700A20 TOP; +METO50ER PO; +PIFELTRO100 MG PO; +SIME80CH PO; +TAMS.4ER PO; +TRIUMEQ 600-501 EACH PO
[2024-03-08 18:05] VITALS: BP 122/82
== END 2024-03-08 18:06 ==
LOC: ER 14:42
DX: S42.202A Unspecified fracture of upper end of left humerus, initial encounter for closed fracture (principal); W18.30XA Fall on same level, unspecified, initial encounter; I10 Essential (primary) hypertension; E78.00 Pure hypercholesterolemia, unspecified; G47.33 Obstructive sleep apnea (adult) (pediatric); I13.0 Hypertensive heart and chronic kidney disease with heart failure and stage 1 through stage 4 chronic kidney disease, or unspecified chronic kidney disease; I50.9 Heart failure, unspecified; N18.9 Chronic kidney disease, unspecified; Z79.899 Other long term (current) drug therapy; Z88.8 Allergy status to other drugs, medicaments and biological substances; Z88.1 Allergy status to other antibiotic agents; Z88.2 Allergy status to sulfonamides; Z88.5 Allergy status to narcotic agent; Z88.0 Allergy status to penicillin
CPT/HCPCS: 51701; 73060; 99284-25

== ENCOUNTER 2025-05-23 11:59 | Emergency (ER) | payer OTHER ==
[~2025-05-23] VITALS: Ht 170.2 cm; Wt 83.9 kg
[2025-05-23 12:24] LABS: BASOPHILS ABSOLUTE AUTO 0.04 K/mm3 (0.00-0.23); BASOPHILS PERCENT AUTO 1 % (0-2); EOSINOPHILS ABSOLUTE AUTO 0.31 K/mm3 (0.00-0.68); EOSINOPHILS PERCENT AUTO 4 % (0-6); Hematocrit 35.0 % (37.0-53.0); Hemoglobin 12.7 g/dL (13.5-17.5); IMMATURE GRAN ABSOLUTE AUTO 0.03 K/mm3 (0.00-0.10); IMMATURE GRAN PERCENT AUTO 0 % (0-1); LYMPHOCYTES ABSOLUTE AUTO 2.26 K/mm3 (0.84-5.20); LYMPHOCYTES PERCENT AUTO 28 % (21-46); MONOCYTES ABSOLUTE AUTO 0.40 K/mm3 (0.16-1.47); MONOCYTES PERCENT AUTO 5 % (4-13); Mean Corpuscular HGB Conc 36.3 g/dL (31.5-36.5); Mean Corpuscular Volume 93 fL (80-100); NEUTROPHILS ABSOLUTE AUTO 4.99 K/mm3 (1.96-9.15); NEUTROPHILS PERCENT AUTO 62 % (41-73); NRBC ABSOLUTE 0.00 K/mm3 (0.00-0.02); NRBC Auto 0.0 /100 WBC (0.0-0.2); Platelet Count 259 K/mm3 (150-400); RDW Coefficient Variation 13.3 % (11.7-14.2); RDW Standard Deviation 45.3 fL (35.1-46.3)
[2025-05-23 13:16] LABS: Alanine Aminotransfer (ALT/SGP 20.0 U/L (12-78); Albumin, Blood 3.4 g/dL (3.4-5.0); Albumin/Globulin Ratio 0.8 (0.8-1.8); Anion Gap 13.0 mmol/L (3-11); Aspartate Aminotrans (AST/SGOT 22.0 U/L (12-37); Bilirubin, Total 0.4 mg/dL (0.1-1.0); Blood Urea Nitrogen 19.0 mg/dL (8-24); CO2, Blood 28.0 mmol/L (21-32); Calcium, Blood 9.3 mg/dL (8.5-10.1); Chloride, Blood 106.0 mmol/L (98-108); Creatinine, Blood 1.61 mg/dL (0.60-1.20); Globulin, Blood 4.3 g/dL (2.2-4.0); Glucose, Blood 115.0 mg/dL (70-99); Magnesium, Blood 1.9 mg/dL (1.6-2.4); Potassium, Blood 3.7 mmol/L (3.5-5.5); Sodium, Blood 143.0 mmol/L (136-145); Total Protein, Blood 7.7 g/dL (6.4-8.2)
[2025-05-23] MEDS ORDERED: CEFU500T30 PO (13:54)
[2025-05-23] MEDS ORDERED: AZIT250 PO (13:54)
[2025-05-23 15:09] VITALS: BP 143/86
== END 2025-05-23 15:11 | disposition home or self-care (01) ==
LOC: ER 11:59
PROVIDERS: Student in an Organized Health Care Education/Training Program
DX: R07.9 Chest pain, unspecified (principal); J18.9 Pneumonia, unspecified organism; I13.0 Hypertensive heart and chronic kidney disease with heart failure and stage 1 through stage 4 chronic kidney disease, or unspecified chronic kidney disease; N18.9 Chronic kidney disease, unspecified; I50.9 Heart failure, unspecified; J44.9 Chronic obstructive pulmonary disease, unspecified; I25.10 Atherosclerotic heart disease of native coronary artery without angina pectoris; I25.2 Old myocardial infarction; Z21 Asymptomatic human immunodeficiency virus [HIV] infection status; Z88.0 Allergy status to penicillin; Z88.2 Allergy status to sulfonamides; Z88.8 Allergy status to other drugs, medicaments and biological substances; Z91.041 Radiographic dye allergy status; Z79.899 Other long term (current) drug therapy
CPT/HCPCS: 71045; 80053; 83735; 84484; 85025; 93005; 93010; 99285-25; A9270

== ENCOUNTER 2025-09-18 11:39 | Emergency (ER) | payer OTHER ==
[~2025-09-18] VITALS: Ht 175.3 cm; Wt 81.7 kg
[~2025-09-18 11:39] MED LIST changes: +AZIT250 PO; +CEFU500T30 PO
[2025-09-18 12:37] LABS: BASOPHILS ABSOLUTE AUTO 0.05 K/mm3 (0.00-0.23); BASOPHILS PERCENT AUTO 1 % (0-2); EOSINOPHILS ABSOLUTE AUTO 0.19 K/mm3 (0.00-0.68); EOSINOPHILS PERCENT AUTO 3 % (0-6); Hematocrit 37.3 % (37.0-53.0); Hemoglobin 13.0 g/dL (13.5-17.5); IMMATURE GRAN ABSOLUTE AUTO 0.02 K/mm3 (0.00-0.10); IMMATURE GRAN PERCENT AUTO 0 % (0-1); LYMPHOCYTES ABSOLUTE AUTO 1.89 K/mm3 (0.84-5.20); LYMPHOCYTES PERCENT AUTO 27 % (21-46); MONOCYTES ABSOLUTE AUTO 0.45 K/mm3 (0.16-1.47); MONOCYTES PERCENT AUTO 6 % (4-13); Mean Corpuscular HGB Conc 34.9 g/dL (31.5-36.5); Mean Corpuscular Volume 97 fL (80-100); NEUTROPHILS ABSOLUTE AUTO 4.54 K/mm3 (1.96-9.15); NEUTROPHILS PERCENT AUTO 64 % (41-73); NRBC ABSOLUTE 0.00 K/mm3 (0.00-0.02); NRBC Auto 0.0 /100 WBC (0.0-0.2); Platelet Count 237 K/mm3 (150-400); RDW Coefficient Variation 13.4 % (11.7-14.2); RDW Standard Deviation 47.8 fL (35.1-46.3)
[2025-09-18] MEDS ORDERED: NS 1,000 ML IV SCH (12:40)
[2025-09-18] MEDS ORDERED: Pantoprazole Sodium 40 MG Injection IV ONE ×2 (12:45→16:15)
[2025-09-18 13:09] LABS: Alanine Aminotransfer (ALT/SGP 16.0 U/L (12-78); Albumin, Blood 3.4 g/dL (3.4-5.0); Albumin/Globulin Ratio 0.8 (0.8-1.8); Anion Gap 6.0 mmol/L (3-11); Aspartate Aminotrans (AST/SGOT 14.0 U/L (12-37); Bilirubin, Total 0.4 mg/dL (0.1-1.0); Blood Urea Nitrogen 23.0 mg/dL (8-24); CO2, Blood 28.0 mmol/L (21-32); Calcium, Blood 8.9 mg/dL (8.5-10.1); Chloride, Blood 111.0 mmol/L (98-108); Creatinine, Blood 1.35 mg/dL (0.60-1.20); Globulin, Blood 4.2 g/dL (2.2-4.0); Glucose, Blood 120.0 mg/dL (70-99); Potassium, Blood 4.3 mmol/L (3.5-5.5); Sodium, Blood 141.0 mmol/L (136-145); Total Protein, Blood 7.6 g/dL (6.4-8.2)
[2025-09-18 15:28] LABS: Calcium, Ionized (POC) 1.10 mmol/L (1.10-1.46); Chloride (POC) 109 mmol/L (98-108); Creatinine (POC) 1.5 mg/dL (0.8-1.3); Glucose (ISTAT POC) 108 mg/dL (70-99); Hematocrit (POC) 36.0 % (41.0-53.0); Hemoglobin (POC) 12.2 g/dL (13.5-17.5); Potassium (POC) 4.0 mmol/L (3.5-5.5); Sodium (POC) 142 mmol/L (135-148); Total CO2 (POC) 23 mmol/L (21-32)
[2025-09-18 15:31] LABS: Hematocrit 36.3 % (37.0-53.0); Hemoglobin 12.8 g/dL (13.5-17.5)
[2025-09-18 16:45] VITALS: BP 167/104
== END 2025-09-18 17:15 ==
LOC: ER 11:39
PROVIDERS: Student in an Organized Health Care Education/Training Program
DX: K92.1 Melena (principal); I13.0 Hypertensive heart and chronic kidney disease with heart failure and stage 1 through stage 4 chronic kidney disease, or unspecified chronic kidney disease; N18.9 Chronic kidney disease, unspecified; I50.9 Heart failure, unspecified; J44.9 Chronic obstructive pulmonary disease, unspecified; I25.10 Atherosclerotic heart disease of native coronary artery without angina pectoris; I25.2 Old myocardial infarction; Z88.0 Allergy status to penicillin; Z88.1 Allergy status to other antibiotic agents; Z91.041 Radiographic dye allergy status; Z88.2 Allergy status to sulfonamides; Z88.8 Allergy status to other drugs, medicaments and biological substances; Z21 Asymptomatic human immunodeficiency virus [HIV] infection status
CPT/HCPCS: 74176; 80047; 80053; 82272; 83605; 85014; 85018; 85025; 86850; 86900; 86901; 99285-25; J2470